=== PATIENT | male | born 1960 | race Caucasian/White ===

== ENCOUNTER 2020-05-06 23:25 | Inpatient (IN) | payer OTHER ==
[~2020-05-06] VITALS: Ht 182.9 cm; Wt 95.4 kg
[2020-05-07 00:18] LABS: Basophils # (auto) 0.1 10 ^3/uL (0-0.2); Basophils % (auto) 0.8 % (0.0-2.0); Eosinophils # (auto) 0.3 10 ^3/uL (0-0.8); Eosinophils % (auto) 2.1 % (0.0-7.0); Hematocrit 38.8 % (41.0-53.0); Hemoglobin 13.4 g/dL (13.5-17.5); Lymphocytes # (auto) 1.8 10 ^3/uL (0.4-5.4); Mean Corpuscular Hemoglobin 31.4 pg (28.0-32.0); Mean Corpuscular Hgb Conc. 34.6 g/dL (32.0-36.0); Mean Corpuscular Volume 90.7 fL (80.0-100.0); Monocytes # (auto) 0.5 10 ^3/uL (0-1.3); Monocytes % (auto) 3.9 % (0.0-12.0); Neutrophils # (auto) 9.9 10 ^3/uL (1.6-8.6); Neutrophils % (auto) 79.2 % (37.0-80.0); Nucleated Red Blood Cells % 0.1 %; Platelet Count (auto) 218 10^3/uL (140-450); Red Blood Cells 4.28 10^6/uL (4.5-5.90); Red Cell Distribution Width 14.5 % (11.8-14.3); White Blood Cell 12.5 10^3/uL (4.4-10.8)
[2020-05-07 00:48] LABS: INR 1.18 (0.9-1.15); Partial Thromboplastin Time 26.2 sec (23.0-31.2)
[2020-05-07 02:20] LABS: Albumin 3.2 g/dL (3.4-5.0); Calcium 7.8 mg/dL (8.5-10.1); Magnesium 1.8 mg/dL (1.6-2.6); Potassium 3.3 mmol/L (3.5-5.1)
[2020-05-07 02:25] LABS: BUN/Creatinine Ratio 23.2; Bilirubin, Total 0.2 mg/dL (0.2-1.0); Total Protein 6.3 g/dL (6.4-8.2)
[2020-05-07] MEDS ORDERED: MORPHINE SULF INJ 2 MG/ML SYRINGE 1ML IV PRN (03:00)
[2020-05-07] MEDS ORDERED: DEXTROSE (50%) 50ML SYRG IV PRN ×2 (03:00→15:15)
[2020-05-07] MEDS ORDERED: ACETAMINOPHEN 325 MG TAB PO PRN (03:00)
[2020-05-07] MEDS ORDERED: MORPHINE SULFATE 4 MG/ML SYR/VIAL IV PRN (03:00)
[2020-05-07] MEDS ORDERED: HYDROcodone-ACET 5/325MG TAB PO PRN ×2 (03:00→15:00)
[2020-05-07] MEDS ORDERED: NITROGLYCERIN 0.4 MG SL TAB SL PRN (03:00)
[2020-05-07] MEDS ORDERED: ONDANSETRON HCL 4 MG/2 ML VIAL IV PRN ×2 (03:00→15:00)
[2020-05-07] MEDS ORDERED: DOCUSATE SOD 100 MG CAP PO PRN (03:00)
[2020-05-07] MEDS ORDERED: hydrALAZINE HCL 20 MG/ML VL IV PRN (03:00)
[2020-05-07] MEDS ORDERED: ENOXAPARIN SOD 40 MG/0.4 ML SYRINGE SC SCH ×2 (04:30→10:00)
[2020-05-07] MEDS ORDERED: ASPirin 81 mg TAB PO SCH ×2 (04:30→10:00)
[2020-05-07] MEDS ORDERED: SODIUM CHLOR 0.9% PF (SALINE LOCK) 10ML VIAL/SYR IV SCH (06:00)
[2020-05-07] MEDS: ACCU-CHEK COMFORT CURVE STRIP VI SCH ×3 (06:52→18:19)
[2020-05-07] MEDS: InsuLIN REG 1unit/0.01ml Soln (100units/ml) SC SCH ×3 (06:53→17:00)
[2020-05-07 07:47] LABS: Basophils # (auto) 0.1 10 ^3/uL (0-0.2); Basophils % (auto) 0.5 % (0.0-2.0); Eosinophils # (auto) 0.2 10 ^3/uL (0-0.8); Eosinophils % (auto) 1.3 % (0.0-7.0); Hematocrit 41.2 % (41.0-53.0); Hemoglobin 14.3 g/dL (13.5-17.5); Lymphocytes # (auto) 1.7 10 ^3/uL (0.4-5.4); Lymphocytes % (auto) 13.5 % (10.0-50.0); Mean Corpuscular Hemoglobin 31.1 pg (28.0-32.0); Mean Corpuscular Hgb Conc. 34.6 g/dL (32.0-36.0); Mean Corpuscular Volume 89.9 fL (80.0-100.0); Monocytes # (auto) 0.8 10 ^3/uL (0-1.3); Monocytes % (auto) 6.6 % (0.0-12.0); Neutrophils # (auto) 9.9 10 ^3/uL (1.6-8.6); Neutrophils % (auto) 78.1 % (37.0-80.0); Nucleated Red Blood Cells % 0.1 %; Platelet Count (auto) 224 10^3/uL (140-450); Red Blood Cells 4.59 10^6/uL (4.5-5.90); Red Cell Distribution Width 14.4 % (11.8-14.3); White Blood Cell 12.7 10^3/uL (4.4-10.8)
[2020-05-07 08:04] LABS: Potassium 3.8 mmol/L (3.5-5.1)
[2020-05-07 08:31] LABS: Albumin 3.6 g/dL (3.4-5.0); BUN/Creatinine Ratio 23.1; Bilirubin, Total 0.3 mg/dL (0.2-1.0); Calcium 8.9 mg/dL (8.5-10.1)
[2020-05-07] MEDS ORDERED: HEPARIN 1,000 UNITS/ml 1ML VIAL IV ONE (09:30)
[2020-05-07] MEDS ORDERED: HEPARIN SODIUM (PORCINE) 5000 UNITS/ML 1ML VIAL ONE ×2 (09:45→13:02)
[2020-05-07] MEDS: ASCORBIC ACID 500 MG TAB PO SCH (10:09)
[2020-05-07] MEDS: ZINC SULFATE 220mg CAP or TAB PO SCH (10:09)
[2020-05-07] MEDS: MULTIPLE VITAMIN TAB PO SCH (10:09)
[2020-05-07] MEDS: FAMOTIDINE 20 MG TAB PO SCH (10:09)
[2020-05-07] MEDS ORDERED: IODIXANOL 320MG/ML 100ML BTL IV ONE (12:41)
[2020-05-07] MEDS ORDERED: LIDOCAINE 2%HCL (LOCAL ANESTH.) INJ 20ML MDV ONE (12:41)
[2020-05-07] MEDS ORDERED: NITROGLYCERIN 5MG/ML 10ML VIAL IV ONE (12:53)
[2020-05-07] MEDS ORDERED: VERAPAMIL 2.5MG/ML INJ 2ML VIAL IV ONE (12:53)
[2020-05-07] MEDS ORDERED: SODIUM CHL 0.9% 100 ML ONE (12:54)
[2020-05-07] MEDS ORDERED: MIDAZOLAM HCL 1MG/1ML-2 ML VIAL ONE (12:54)
[2020-05-07] MEDS ORDERED: fentaNYL CITRATE 100 MCG/2 ML VL ONE (12:54)
[2020-05-07] MEDS ORDERED: ANGIOMAX 250 MG VIAL IV ONE ×2 (12:54→14:05)
[2020-05-07] MEDS ORDERED: niCARdipine 25 MG/10 ML VIAL IV ONE (13:44)
[2020-05-07] MEDS ORDERED: EPTIFIBATIDE INJ (2MG/ML) 10ML VIAL IV ONE (13:55)
[2020-05-07] MEDS ORDERED: NOREPINEPHRINE 8 MG/250ML KIT 0 ML IV ONE (13:58)
[2020-05-07] MEDS ORDERED: SODIUM CHL 0.9% 50 ML ONE (14:05)
[2020-05-07] MEDS ORDERED: ASPirin 325 MG TAB ONE (14:25)
[2020-05-07] MEDS ORDERED: TICAGRELOR 90 MG TAB ONE (14:25)
[2020-05-07] MEDS ORDERED: HYDROmorphone HCL 2 MG/ML VL IV PRN (15:00)
[2020-05-07] MEDS ORDERED: EPTIFIBATIDE DRIP(0.75MG/ML) 100 ML IV ONE (15:12)
[2020-05-07 16:28] VITALS: BP 135/82
[2020-05-07] MEDS ORDERED: ALPRAZolam 0.25 MG TAB PO PRN (16:30)
[2020-05-07] MEDS ORDERED: NICOTINE 21MG/24 HR TOPICAL PATCH TD ONE (16:30)
[2020-05-07 17:31] VITALS: BP 135/82
[2020-05-07 18:23] LABS: Basophils # (auto) 0 10 ^3/uL (0-0.2); Basophils % (auto) 0.3 % (0.0-2.0); Eosinophils # (auto) 0.1 10 ^3/uL (0-0.8); Eosinophils % (auto) 0.5 % (0.0-7.0); Hematocrit 41.1 % (41.0-53.0); Lymphocytes # (auto) 1.9 10 ^3/uL (0.4-5.4); Lymphocytes % (auto) 12.3 % (10.0-50.0); Mean Corpuscular Hgb Conc. 34.1 g/dL (32.0-36.0); Mean Corpuscular Volume 90.7 fL (80.0-100.0); Monocytes # (auto) 0.8 10 ^3/uL (0-1.3); Monocytes % (auto) 5.4 % (0.0-12.0); Neutrophils # (auto) 12.2 10 ^3/uL (1.6-8.6); Neutrophils % (auto) 81.5 % (37.0-80.0); Nucleated Red Blood Cells % 0.1 %; Platelet Count (auto) 217 10^3/uL (140-450); Red Blood Cells 4.53 10^6/uL (4.5-5.90)
[2020-05-07 18:39] LABS: Albumin 3.5 g/dL (3.4-5.0); Calcium 8.5 mg/dL (8.5-10.1); INR 1.24 (0.9-1.15); Magnesium 2.1 mg/dL (1.6-2.6); Partial Thromboplastin Time 44.6 sec (23.0-31.2); Potassium 3.6 mmol/L (3.5-5.1)
[2020-05-07 18:43] LABS: Bilirubin, Total 0.4 mg/dL (0.2-1.0); Total Protein 7.1 g/dL (6.4-8.2)
[2020-05-07] MEDS ORDERED: GEMF600T PO (19:42)
[2020-05-07] MEDS ORDERED: HYDR12.56 PO (19:42)
[2020-05-07] MEDS ORDERED: DOXA4TAB5 PO (19:49)
[2020-05-07] MEDS ORDERED: LISI-646 PO (19:50)
[2020-05-07] MEDS ORDERED: OMEP20TA PO (19:50)
[2020-05-07 20:03] LABS: BUN/Creatinine Ratio 18.7
[2020-05-07 21:36] VITALS: BP 132/73
[2020-05-07] MEDS: TICAGRELOR 90 MG TAB PO SCH (22:00)
[2020-05-07] MEDS ORDERED: InsuLIN REG 1unit/0.01ml Soln (100units/ml) SC SCH (22:00)
[2020-05-07] MEDS: SOD CHL 0.45% 1,000 ML IV SCH (23:42)
[2020-05-07] MEDS: EPTIFIBATIDE DRIP(0.75MG/ML) 100 ML IV SCH (23:46)
[2020-05-08] MEDS: InsuLIN REG 1unit/0.01ml Soln (100units/ml) SC SCH ×5 (01:49→21:53)
[2020-05-08] MEDS: ACCU-CHEK COMFORT CURVE STRIP VI SCH ×5 (01:50→21:53)
[2020-05-08] MEDS: EPTIFIBATIDE DRIP(0.75MG/ML) 100 ML IV SCH ×4 (02:03→16:15)
[2020-05-08] MEDS: SODIUM CHLOR 0.9% PF (SALINE LOCK) 10ML VIAL/SYR IV SCH ×4 (02:04→21:58)
[2020-05-08] MEDS: ATORVASTATIN 20 MG TAB PO SCH ×2 (02:06→21:57)
[2020-05-08] MEDS: METOPROLOL TARTRATE 25 MG TAB PO SCH ×3 (02:08→21:53)
[2020-05-08] MEDS: FAMOTIDINE 20 MG TAB PO SCH ×3 (02:08→21:53)
[2020-05-08] MEDS: ASCORBIC ACID 500 MG TAB PO SCH ×3 (02:09→21:53)
[2020-05-08 04:53] VITALS: BP 111/69
[2020-05-08 06:28] LABS: Basophils # (auto) 0.1 10 ^3/uL (0-0.2); Basophils % (auto) 0.6 % (0.0-2.0); Eosinophils # (auto) 0.1 10 ^3/uL (0-0.8); Eosinophils % (auto) 0.9 % (0.0-7.0); Hematocrit 38.5 % (41.0-53.0); Hemoglobin 13.4 g/dL (13.5-17.5); Lymphocytes # (auto) 1.4 10 ^3/uL (0.4-5.4); Mean Corpuscular Hemoglobin 31.2 pg (28.0-32.0); Mean Corpuscular Hgb Conc. 34.9 g/dL (32.0-36.0); Mean Corpuscular Volume 89.5 fL (80.0-100.0); Monocytes # (auto) 0.9 10 ^3/uL (0-1.3); Monocytes % (auto) 6.4 % (0.0-12.0); Neutrophils # (auto) 11.8 10 ^3/uL (1.6-8.6); Neutrophils % (auto) 82.1 % (37.0-80.0); Platelet Count (auto) 207 10^3/uL (140-450); Red Cell Distribution Width 14.4 % (11.8-14.3); White Blood Cell 14.4 10^3/uL (4.4-10.8)
[2020-05-08 06:49] LABS: Potassium 3.7 mmol/L (3.5-5.1)
[2020-05-08] MEDS: SOD CHL 0.45% 1,000 ML IV SCH ×2 (06:59→19:51)
[2020-05-08 07:14] LABS: Albumin 3.6 g/dL (3.4-5.0); BUN/Creatinine Ratio 17.1; Bilirubin, Total 0.9 mg/dL (0.2-1.0); Calcium 8.8 mg/dL (8.5-10.1); Total Protein 7.1 g/dL (6.4-8.2)
[2020-05-08 08:00] VITALS: BP 128/76
[2020-05-08] MEDS: MULTIPLE VITAMIN TAB PO SCH (10:19)
[2020-05-08] MEDS: ZINC SULFATE 220mg CAP or TAB PO SCH (10:19)
[2020-05-08] MEDS: ASPirin 81 mg TAB PO SCH (10:19)
[2020-05-08] MEDS: TICAGRELOR 90 MG TAB PO SCH ×2 (10:22→22:00)
[2020-05-08] MEDS ORDERED: cefTRIAXone 1GM/50ML D5W 50 ML IV ONE (10:45)
[2020-05-08 16:00] VITALS: BP 140/75
[2020-05-08] MEDS: ZOLPIDEM TARTRATE 5 MG TAB PO PRN (21:58)
[2020-05-08 22:00] VITALS: BP 116/63
[2020-05-09] MEDS: EPTIFIBATIDE DRIP(0.75MG/ML) 100 ML IV SCH ×3 (00:54→12:15)
[2020-05-09 05:00] VITALS: BP 112/68
[2020-05-09] MEDS: SODIUM CHLOR 0.9% PF (SALINE LOCK) 10ML VIAL/SYR IV SCH ×3 (06:21→21:36)
[2020-05-09] MEDS: InsuLIN REG 1unit/0.01ml Soln (100units/ml) SC SCH ×4 (06:21→21:44)
[2020-05-09] MEDS: ACCU-CHEK COMFORT CURVE STRIP VI SCH ×4 (06:21→21:13)
[2020-05-09] MEDS: cefTRIAXone 1GM/50ML D5W 50 ML IV SCH (08:43)
[2020-05-09 09:00] VITALS: BP 118/67
[2020-05-09] MEDS: MULTIPLE VITAMIN TAB PO SCH (10:00)
[2020-05-09] MEDS: ZINC SULFATE 220mg CAP or TAB PO SCH (10:00)
[2020-05-09] MEDS: FAMOTIDINE 20 MG TAB PO SCH ×2 (10:00→21:13)
[2020-05-09] MEDS: ASCORBIC ACID 500 MG TAB PO SCH ×2 (10:00→21:11)
[2020-05-09] MEDS: TICAGRELOR 90 MG TAB PO SCH ×2 (10:00→14:38)
[2020-05-09] MEDS: METOPROLOL TARTRATE 25 MG TAB PO SCH ×2 (10:00→21:12)
[2020-05-09] MEDS: SOD CHL 0.45% 1,000 ML IV SCH (10:27)
[2020-05-09] MEDS: ASPirin 81 mg TAB PO SCH (10:27)
[2020-05-09 12:00] VITALS: BP 107/67
[2020-05-09] MEDS ORDERED: diphenhdrAMINE HCL 50 MG/1 ML VL ONE (13:00)
[2020-05-09] MEDS ORDERED: fentaNYL CITRATE 100 MCG/2 ML VL ONE (13:01)
[2020-05-09] MEDS ORDERED: IOHEXOL 350 MG/ML 100ML IJ ONE (13:01)
[2020-05-09] MEDS ORDERED: MIDAZOLAM HCL 1MG/1ML-2 ML VIAL ONE (13:01)
[2020-05-09] MEDS ORDERED: LIDOCAINE 2%HCL (LOCAL ANESTH.) INJ 20ML MDV ONE (13:01)
[2020-05-09] MEDS ORDERED: ATROPINE SULF 1 MG/10ml SYR ONE (13:15)
[2020-05-09] MEDS ORDERED: EPTIFIBATIDE DRIP(0.75MG/ML) 100 ML IV ONE (14:02)
[2020-05-09] MEDS ORDERED: TICAGRELOR 90 MG TAB ONE (14:35)
[2020-05-09 17:00] VITALS: BP 134/72
[2020-05-09] MEDS: ATORVASTATIN 20 MG TAB PO SCH (21:12)
[2020-05-09] MEDS: ZOLPIDEM TARTRATE 5 MG TAB PO PRN (21:18)
[2020-05-09 22:00] VITALS: BP 110/68
[2020-05-10] MEDS: SOD CHL 0.45% 1,000 ML IV SCH ×2 (00:15→14:45)
[2020-05-10 05:00] VITALS: BP 107/61
[2020-05-10] MEDS: ACCU-CHEK COMFORT CURVE STRIP VI SCH ×3 (05:35→16:20)
[2020-05-10] MEDS: SODIUM CHLOR 0.9% PF (SALINE LOCK) 10ML VIAL/SYR IV SCH ×2 (05:35→14:00)
[2020-05-10] MEDS: InsuLIN REG 1unit/0.01ml Soln (100units/ml) SC SCH ×3 (05:35→16:20)
[2020-05-10 08:00] VITALS: BP 103/63
[2020-05-10] MEDS: cefTRIAXone 1GM/50ML D5W 50 ML IV SCH (09:50)
[2020-05-10] MEDS: ASPirin 81 mg TAB PO SCH (09:51)
[2020-05-10] MEDS: FAMOTIDINE 20 MG TAB PO SCH (09:52)
[2020-05-10] MEDS: METOPROLOL TARTRATE 25 MG TAB PO SCH (09:52)
[2020-05-10] MEDS: ASCORBIC ACID 500 MG TAB PO SCH (09:52)
[2020-05-10] MEDS: TICAGRELOR 90 MG TAB PO SCH (09:57)
[2020-05-10] MEDS: ZINC SULFATE 220mg CAP or TAB PO SCH (09:57)
[2020-05-10] MEDS: MULTIPLE VITAMIN TAB PO SCH (10:18)
[2020-05-10 16:03] VITALS: BP 106/62
== END 2020-05-10 17:40 | disposition home or self-care (01) | DRG 247 ==
LOC: ER 23:25 → EDBD 23:25 → TELE 05-07 03:21 → TELE-CENTR 05-07 15:41
PROVIDERS: ADMIT Nurse Practitioner Family; ATTEND Family Medicine
PROC: 4A023N7 Measurement of Cardiac Sampling and Pressure, Left Heart, Percutaneous Approach (ICD-10-PCS; principal; 2020-05-07)
PROC: 027034Z Dilation of Coronary Artery, One Artery with Drug-eluting Intraluminal Device, Percutaneous Approach (ICD-10-PCS; 2020-05-07)
PROC: B2111ZZ Fluoroscopy of Multiple Coronary Arteries using Low Osmolar Contrast (ICD-10-PCS; 2020-05-07)
PROC: 027135Z Dilation of Coronary Artery, Two Arteries with Two Drug-eluting Intraluminal Devices, Percutaneous Approach (ICD-10-PCS; 2020-05-09)
DX: I21.3 ST elevation (STEMI) myocardial infarction of unspecified site (principal); D72.829 Elevated white blood cell count, unspecified; E11.65 Type 2 diabetes mellitus with hyperglycemia; E78.00 Pure hypercholesterolemia, unspecified; E78.5 Hyperlipidemia, unspecified; E87.6 Hypokalemia; F17.200 Nicotine dependence, unspecified, uncomplicated; I10 Essential (primary) hypertension; I25.119 Atherosclerotic heart disease of native coronary artery with unspecified angina pectoris; Z20.822 Contact with and (suspected) exposure to COVID-19; J44.9 Chronic obstructive pulmonary disease, unspecified; Z79.899 Other long term (current) drug therapy; Z79.82 Long term (current) use of aspirin; Z98.61 Coronary angioplasty status; Z71.6 Tobacco abuse counseling
CPT/HCPCS: 36415; 71045; 80053; 80061; 82962; 83036; 83735; 83880; 84443; 84484; 85025; 85379; 85610; 85730; 86850; 86900; 86901; 87426; 93005; 93306; 94640; 99152; 99153; C1874; C1887; G0378; J0696; J1815; J2250; J3490; Q9967